=== PATIENT | female | born 1970 | race Caucasian/White ===

== ENCOUNTER 2018-03-23 13:53 | Outpatient (CLI) | payer OTHER ==
--- NOTE | 2018-03-23 16:34 | MMO ---
BILATERAL SCREENING MAMMOGRAM: Clinical history: Screening evaluation. Baseline exam. Comparison: None available. This study is interpreted with the assistance of computer aided detection. FINDINGS: Scattered fibroglandular elements are present bilaterally. There is no evidence of a dominant mass, s uspicious cluster of microcalcification or architectural distortion. IMPRESSION: BIRADS 1 - negative. Annual screening mammography is recommended. POS: [facility]
== END 2018-03-23 13:54 | disposition home or self-care (01) ==
LOC: SCSMAMMO 13:53
PROVIDERS: ATTEND Family Medicine
DX: Z12.31 Encounter for screening mammogram for malignant neoplasm of breast (principal)
CPT/HCPCS: 77067